=== PATIENT | male | born 1960 | race Caucasian/White ===

== ENCOUNTER 2018-10-18 06:31 | Emergency (ER) | payer BC ==
[~2018-10-18] VITALS: Ht 182.9 cm; Wt 93.0 kg
[2018-10-18 06:35] VITALS: BP_SYST 135
--- NOTE | 2018-10-18 06:35 | NUR ---
Pt placed to ER bed 05 via W/C. Pt c/o lower back pain that radiates to left side since 0530 this AM. Pt denies trauma or injury. Pt states that he has been lifting his who is presently admitted in hospital.
--- NOTE | 2018-10-18 06:59 | NUR ---
Dr. Villasenor at bedside to assess pt.
[2018-10-18] MEDS ORDERED: NACL 0.9% 1,000 ML IV ONE (07:01)
--- NOTE | 2018-10-18 07:10 | NUR ---
Pt report given to PEGGY Gomez.
--- NOTE | 2018-10-18 07:12 | NUR ---
# 20 gauge angiocath placed to RIGHT AC. Use of asceptic technique. Opsite placed over site. Blood return noted. Blood for lab drawn from site. Flushed with 10 cc of normal saline. No evidence of infiltration noted. Patient tolerated well.
[2018-10-18] MEDS ORDERED: KETOROLAC TROMETHAMINE 30 MG VIAL IVP ONE (07:15)
[2018-10-18] MEDS ORDERED: ONDANSETRON HCL 4 MG/2 ML VIAL IVP ONE (07:15)
--- NOTE | 2018-10-18 07:25 | NUR ---
PATIENT LEFT TO CT VIA GURNEY IN STABLE CONDITION.
--- NOTE | 2018-10-18 07:31 | NUR ---
PATIENT BACK FROM CT IN STABLE CONDITION.
[2018-10-18 07:34] LABS: BASOPHILS % (AUTO) 0.6 % (0.0-2.0); EOSINOPHILS # (AUTO) 0.1 K/uL (0.0-0.4); EOSINOPHILS % (AUTO) 3.3 % (0.0-4.0); HEMATOCRIT 41.7 % (36-54); LYMPHOCYTES % (AUTO) 29.4 % (20.5-51.5); MEAN CORPUSCULAR HEMOGLOBIN 30 pg (27-31); MEAN CORPUSCULAR HGB CONC 34 % (32-36); MEAN CORPUSCULAR VOLUME 91 fL (79.0-98.0); MONOCYTES # (AUTO) 0.4 K/uL (0.0-1.0); MONOCYTES % (AUTO) 10.9 % (1.7-9.3); NEUTROPHILS # (AUTO) 1.9 K/uL (1.8-7.7); NEUTROPHILS % (AUTO) 55.8 % (40.0-70.0); PLATELET COUNT (AUTO) 161 K/uL (130-430); RED CELL DISTRIBUTION WIDTH 12.9 % (9.0-15.0); WHITE BLOOD COUNT (AUTO) 3.3 K/uL (4.8-10.8)
--- NOTE | 2018-10-18 07:41 | NUR ---
Patient no longer shifting in bed with discomfort. Patient states pain is much better after toradol, states it "worked wonders." Patient's son at bedside, IVF running, patient aware we need urine specimen to be collected. MD aware of toradol controlling patients pain.
[2018-10-18 07:49] LABS: CALCIUM 8.5 mg/dL (8.4-11.0); CREATININE 1.14 mg/dL (0.55-1.30); POTASSIUM 3.9 mmol/L (3.5-5.1)
[2018-10-18 08:01] LABS: ALBUMIN 3.5 g/dL (3.4-4.8); TOTAL BILIRUBIN 0.4 mg/dL (0.0-1.0)
[2018-10-18 08:30] LABS: BILIRUBIN,URINE NEGATIVE (NEGATIVE); BLOOD, URINE 3+ (NEGATIVE); CLARITY/URINE CLEAR (CLEAR); COLOR,URINE YELLOW (YELLOW); GLUCOSE,URINE NEGATIVE (NEGATIVE); KETONES,URINE NEGATIVE (NEGATIVE); LEUKOCYTE ESTERASE ,URINE NEGATIVE (NEGATIVE); NITRITE, URINE NEGATIVE (NEGATIVE); PROTEIN URINE TRACE (NEGATIVE); UROBILINOGEN,URINE 0.2 (0.2-1.0)
--- NOTE | 2018-10-18 08:47 | NUR ---
DR FERNANDES AT BEDSIDE TALKING TO PATIENT. PATIENT COMPLAINING OF PAIN AND NAUSEA. DR MONTEZ.
[2018-10-18 09:12] LABS: BACTERIA,URINE FEW /HPF (None Seen); RBC,URINE 20-50 /HPF (0-3); WBC,URINE 0-3 /HPF (0-3)
[2018-10-18 09:13] LABS: MUCUS,URINE 1+ /LPF (None Seen)
[2018-10-18 09:22] VITALS: BP_SYST 128
--- NOTE | 2018-10-18 09:22 | NUR ---
Patient given written and verbal discharge instructions and verbalizes understanding. ER MD discussed with patient the results and treatment provided. Patient in stable condition. ID arm band removed. IV catheter removed intact and dressing applied, no active bleeding. Rx of TYLENOL, ZOFRAN, AND FLOMAX given. Patient educated on pain management and to follow up with PMD. Pain Scale 3/10 TOLERABLE. Opportunity for questions provided and answered. Medication side effect fact sheet provided.
== END 2018-10-18 09:22 | disposition home or self-care (01) ==
LOC: SED 06:31
DX: N20.0 Calculus of kidney (principal)
CPT/HCPCS: 36415; 74176; 80053; 81000; 85025; 96374; 96375; 99284; J1885; J2405; J7030